=== PATIENT | male | born 1955 | race Caucasian/White ===

== ENCOUNTER 2017-07-17 09:20 | Day surgery (SDC) | payer OTHER ==
[2017-07-13 17:27] VITALS: BMI 27.8
--- NOTE | 2017-07-17 10:50 | HP ---
History & Physical Update - History History: No Change - Physical Physical: No Change - Assessment Assessment: No Change - Plan Plan: No Change
[2017-07-17] MEDS ORDERED: BUPIVACAINE HCL/EPINEPHRINE/PF 30 ML VIAL IJ ONE (12:39)
[2017-07-17] MEDS ORDERED: MIDAZOLAM HCL 2 MG/2 ML SINGLE DOSE VIAL ONE ×2 (13:04→13:19)
[2017-07-17] MEDS ORDERED: PROPOFOL 20 ML ONE (13:16)
[2017-07-17] MEDS ORDERED: ceFAZolin SODIUM 1 GM VIAL ONE (13:24)
[2017-07-17] MEDS ORDERED: ONDANSETRON 4 MG/2 ML VIAL ONE ×2 (13:28→14:14)
[2017-07-17] MEDS ORDERED: DEXAMETHASONE SOD PHOSPHATE 4 MG/1 ML VIAL ONE (13:28)
--- NOTE | 2017-07-17 14:01 | OP ---
Operative Note - Note: Operative Date: 07/17/17 Pre-Operative Diagnosis: Left hip mass Operation: Left hip mass excision Post-Operative Diagnosis: Same as Pre-op Surgeon: Bud Machuca Anesthesiologist/BIOFUELS RESEARCH SCIENTIST: Gutierrez Ross Anesthesia: General Specimens Removed: hip mass Operative Report Dictated: Yes
--- NOTE | 2017-07-17 14:02 | DS ---
Physical Examination Vital Signs: Vital Signs Temperature 97.7 F 07/17/17 10:14 Pulse Rate 79 07/17/17 10:14 Respiratory Rate 18 07/17/17 10:14 Blood Pressure 149/94 07/17/17 10:14 O2 Sat by Pulse Oximetry (%) 96 07/17/17 10:14 Discharge Summary Reason For Visit: LEFT HIP MASS Condition: Good - Instructions Diet, Activity, Other Instructions: You may walk as tolerated. You can shower tomorrow. Do not peel the glue off. Please call to make an appointment to have the incision checked in 10-14 days. Disposition: HOME - Home Medications Comprehensive Discharge Medication List: Ambulatory Orders Cetirizine HCl [Zyrtec -] 10 mg PO HS 02/21/14 Omeprazole 20 mg PO DAILY 07/13/17 Tamsulosin HCl 0.4 mg PO HS 07/13/17 Zolpidem Tartrate [Ambien] 10 mg PO HS PRN 07/13/17
[2017-07-17] MEDS ORDERED: oxyCODONE HCL 5 MG TABLET PO PRN ×2 (14:31)
[2017-07-17] MEDS ORDERED: ONDANSETRON 4 MG/2 ML VIAL IVPUSH PRN (14:31)
[2017-07-17] MEDS ORDERED: LACTATED RINGERS SOLUTION 1,000 ML IV SCH (14:45)
[2017-07-17 15:15] VITALS: TEMP 97.8
[2017-07-17 16:36] VITALS: BP 135/90; PULSE 84
--- NOTE | 2017-07-23 12:39 | PATH ---
Surgical Pathology Report Patient Name: TERRI GLEASON [facility]. Rec. #: [id number] /Age/Gender: 1955 (Age: 62) / M Account: [id number] Location: [facility] Taken: 07/17/2017 Received: 07/17/2017 Reported: 07/23/2017 Physicians: Bud Machuca M.D. 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 NOTE: Immunohistochemical markers CD34 and factor VIII/ vWF (performed at [place], [place]: [id number]) are positive in the lesional cells. These findings support the diagnosis. Electronically Signed Mela Henrandez M.D. Gross Description Received in formalin labeled "mass left hip," is a 2.0 x 1.8 x 1.0 cm portion of abel-castillo soft tissue with attached fat. Soap Inspector sections are submitted in one cassette. 07/20/2017 [facility]07/20/2017
== END 2017-07-17 15:45 | disposition home or self-care (01) ==
LOC: FASU 09:20
PROVIDERS: ATTEND Orthopaedic Surgery
PROC: 0JB80ZX Excision of Abdomen Subcutaneous Tissue and Fascia, Open Approach, Diagnostic (ICD-10-PCS; principal; 2017-07-17 13:30)
DX: D18.09 Hemangioma of other sites (principal)
CPT/HCPCS: 88305-TC; 94760

== ENCOUNTER 2023-06-10 08:54 | Day surgery (SDC) | payer OTHER, MEDICARE ==
[2023-06-08 13:25] VITALS: BMI 27.8
[2023-06-10] MEDS ORDERED: BUPIVACAINE HCL/EPINEPHRINE/PF 30 ML VIAL IJ ONE (10:10)
[2023-06-10] MEDS ORDERED: EPINEPHrine 1:1,000 1,000 MCG/ML ML ONE (10:10)
[2023-06-10] MEDS ORDERED: BUPIVACAINE HCL/PF 0.5% (5 MG/ML) 30 ML VIAL IJ ONE (10:18)
[2023-06-10] MEDS ORDERED: MIDAZOLAM HCL 2 MG/2 ML SINGLE DOSE VIAL ONE (10:18)
[2023-06-10] MEDS ORDERED: ACETAMINOPHEN INJECTION 100 ML IVPB ONE (10:18)
[2023-06-10] MEDS ORDERED: DEXAMETHASONE SOD PHOSPHATE/PF 10 MG/ML SDV ONE (10:20)
[2023-06-10] MEDS ORDERED: ONDANSETRON 4 MG/2 ML VIAL ONE (10:54)
[2023-06-10] MEDS ORDERED: DEXAMETHASONE SOD PHOSPHATE 4 MG/1 ML VIAL ONE (10:54)
[2023-06-10] MEDS ORDERED: ceFAZolin SODIUM 1 GM VIAL ONE (10:55)
[2023-06-10] MEDS ORDERED: PROPOFOL 20 ML ONE ×3 (11:01→12:13)
[2023-06-10 13:53] VITALS: RESP 16; TEMP 97.3
[2023-06-10 14:40] VITALS: BP 126/70; PULSE 77
== END 2023-06-10 14:33 | disposition home or self-care (01) ==
LOC: FASU 08:54
PROVIDERS: ATTEND Orthopaedic Surgery
PROC: 0LS34ZZ Reposition Right Upper Arm Tendon, Percutaneous Endoscopic Approach (ICD-10-PCS; principal; 2023-06-10 11:09)
PROC: 0LM14ZZ Reattachment of Right Shoulder Tendon, Percutaneous Endoscopic Approach (ICD-10-PCS; 2023-06-10 11:09)
DX: S46.091A Other injury of muscle(s) and tendon(s) of the rotator cuff of right shoulder, initial encounter (principal); S43.081A Other subluxation of right shoulder joint, initial encounter; X58.XXXA Exposure to other specified factors, initial encounter; Y93.9 Activity, unspecified; Y92.9 Unspecified place or not applicable
CPT/HCPCS: 94760; C1713